=== PATIENT | male | born 1955 | race African-American/Black ===

== ENCOUNTER 2018-08-07 09:29 | Inpatient (IN) ==
[2018-08-07] MEDS ORDERED: SODIUM CHLORIDE 0.9% 1,000 ML IV STA ×2 (09:55→13:07)
[2018-08-07] MEDS ORDERED: THIAMINE 200 MG/2 ML VIAL IV STA (09:57)
[2018-08-07 10:15] LABS: Basophils # 0.1 10*3/uL (0.0-0.2); Basophils % 0.5 % (0.0-0.8); Eosinophils # 0.1 10*3/uL (0.0-0.87); Eosinophils % 0.8 % (0.00-10.9); Hematocrit 38.6 VOL% (42.0-52.0); Hemoglobin 12.7 GM/DL (14.0-18.0); Immature Granulocytes % 0.5 %; Immature Granulocytes Absolute 0.06 #; Lymphocytes # 1.9 10*3/uL (1.4-4.0); Lymphocytes % 16.6 % (21.2-54.2); Mean Corpuscular HGB Conc 32.9 GM/DL (32-36); Mean Corpuscular Hemoglobin 30 PG (27-34); Mean Corpuscular Volume 91.7 FL (87-102); Mean Platelet Volume 10.1 FL (9.6-12.0); Monocytes # 0.8 10*3/uL (0.11-0.8); Monocytes % 6.9 % (1.7-12.7); Neutrophils # 8.7 10*3/uL (1.4-7.4); Neutrophils % 74.7 % (38.7-73.9); Platelet Count 192 T/CUMM (130-400); Red Blood Count 4.21 MC/CUMM (3.8-5.5); Red Cell Distribution Width 13.2 % (9.3-17.3); White Blood Count 11.7 T/CUMM (4-12)
[2018-08-07 10:54] LABS: Alanine Aminotransferase 50 U/L (16-61); Albumin 3.1 G/DL (3.4-5.0); Alkaline Phosphatase 91 U/L (45-117); Aspartate Amino Transferase 86 U/L (0-37); Blood Urea Nitrogen 26 MG/DL (7-18); Calcium 9.2 MG/DL (8.5-10.1); Glucose 74 MG/DL (74-106); Osmolality,Calculated 263.8 MOS/KG (273-304); Potassium 4.3 MMOL/L (3.5-5.1); Sodium 130 MMOL/L (136-145); Total Protein 9.1 G/DL (6.4-8.3); Uric Acid 9.8 MG/DL (3.5-7.2)
[2018-08-07 11:20] LABS: Band Neutrophils 9 % (0-10); Eosinophils 1 % (0-10); Hypochromasia 1+; Lymphocytes 13 % (20-55); Platelet Estimate Normal; Segmented Neutrophils 70 % (50-85); Smudge Cells Few; Total Cells Counted 100
[2018-08-07 11:21] LABS: Anisocytosis Slight; Macrocytosis Slight
[2018-08-07 12:55] LABS: Apearance,Urine CLEAR (Clear); Bilirubin,Urine Negative (Negative); Blood, Urine Small mg/dL (Negative); Glucose,Urine (UA) Negative (Negative); Ketones,Urine 20 mg/dL (Negative); Nitrite,Urine Negative (Negative); Protein,Urine Negative; RBC,Urine <1 /HPF (0-4); Urine Color Yellow (Yellow); Urine Specific Gravity 1.014 (1.001-1.035); Urine Urobilinogen < 2.0 EU/DL (0.2-1.0); WBC,Urine 1 /HPF (0-6)
[2018-08-07 13:04] LABS: Barbiturates Screen,Urine Negative (Negative); Benzodiazepines Screen,Urine Negative (Negative); Cannabinoid Screen,Urine Negative (Negative); Opiate Screen,Urine Negative (Negative); Phencyclidine Screen,Urine Negative (Negative)
[2018-08-07] MEDS ORDERED: ACETAMINOPHEN 325 MG TABLET PO PRN (13:05)
[2018-08-07] MEDS ORDERED: PROMETHAZINE 25 MG TABLET PO PRN (13:05)
[2018-08-07] MEDS ORDERED: LORazepam 2 MG/1 ML VIAL IV PRN (13:08)
[2018-08-07] MEDS ORDERED: cefTRIAXone 1,000 MG in SODIUM CHLORIDE 0.9% 100 ML IV STA (13:13)
[2018-08-07] MEDS ORDERED: GLUCAGON 1 MG VIAL IM PRN ×2 (13:26→18:05)
[2018-08-07] MEDS ORDERED: DEXTROSE 50% 25 GM/50 ML VIAL IV PRN (13:26)
[2018-08-07] MEDS ORDERED: METHOCARBAMOL 750 MG TABLET PO PRN (13:27)
[2018-08-07] MEDS ORDERED: THIAMINE INJ 100 MG, FOLIC ACID INJ 1 MG, MULTIVITAMIN INJ 10 ML in DEXTROSE 5% NACL 0.... IV ONE (13:27)
[2018-08-07] MEDS ORDERED: THIAMINE INJ 100 MG, FOLIC ACID INJ 1 MG, MULTIVITAMIN INJ 10 ML in SODIUM CHLORIDE 0.9... IV ONE (13:27)
[2018-08-07] MEDS ORDERED: ARIPIPRAZOLE 400 MG IM SCH (13:30)
[2018-08-07] MEDS ORDERED: CEFTAROLINE 600 MG in SODIUM CHLORIDE 0.9% 100 ML IV SCH (14:00)
[2018-08-07 14:16] LABS: Folate 12.3 NG/ML (5.4-24.0)
[2018-08-07] MEDS ORDERED: INFLUENZA VIRUS VACCINE 0.5 ML SYRINGE IM ONE (15:43)
[2018-08-07] MEDS: chlordiazePOXIDE 25 MG CAPSULE PO SCH ×2 (16:03→22:31)
[2018-08-07] MEDS: INDOMETHACIN 25 MG CAPSULE PO SCH ×2 (16:03→22:31)
[2018-08-07] MEDS: PANTOPRAZOLE 40 MG TABLET PO SCH (16:04)
[2018-08-07] MEDS: INSULIN LISPRO 100 UNIT/ML SUBCUT SCH ×2 (16:25→22:30)
[2018-08-07] MEDS ORDERED: Asenapine Maleate [Saphris] 10 MG PO SCH (21:00)
[2018-08-07] MEDS: ENOXAPARIN 40 MG/0.4 ML SYRINGE SUBCUT SCH (22:29)
[2018-08-07] MEDS: DIVALPROEX 500 MG TABLET PO SCH (22:31)
[2018-08-07] MEDS: NYSTATIN POWDER 15 GM BOTTLE TOP SCH (22:36)
[2018-08-07] MEDS ORDERED: DEXTROSE 5% NACL 0.45% 1,000 ML IV SCH (23:00)
[2018-08-08] MEDS: chlordiazePOXIDE 25 MG CAPSULE PO SCH ×4 (01:36→22:26)
[2018-08-08 06:16] LABS: Basophils % 0.4 % (0.0-0.8); Eosinophils # 0.1 10*3/uL (0.0-0.87); Eosinophils % 0.9 % (0.00-10.9); Hematocrit 31.6 VOL% (42.0-52.0); Hemoglobin 10.1 GM/DL (14.0-18.0); Immature Granulocytes % 0.7 %; Immature Granulocytes Absolute 0.05 #; Lymphocytes # 1.4 10*3/uL (1.4-4.0); Lymphocytes % 20.5 % (21.2-54.2); Mean Corpuscular Hemoglobin 29 PG (27-34); Mean Corpuscular Volume 91.3 FL (87-102); Mean Platelet Volume 10.7 FL (9.6-12.0); Monocytes # 0.5 10*3/uL (0.11-0.8); Monocytes % 7.2 % (1.7-12.7); Neutrophils # 4.9 10*3/uL (1.4-7.4); Neutrophils % 70.3 % (38.7-73.9); Platelet Count 155 T/CUMM (130-400); Red Blood Count 3.46 MC/CUMM (3.8-5.5); White Blood Count 6.9 T/CUMM (4-12)
[2018-08-08 06:43] LABS: Alanine Aminotransferase 31 U/L (16-61); Albumin 2.2 G/DL (3.4-5.0); Alkaline Phosphatase 74 U/L (45-117); Aspartate Amino Transferase 47 U/L (0-37); Bilirubin,Total < 0.39 MG/DL (0.2-1.0); Blood Urea Nitrogen 17 MG/DL (7-18); Cholesterol 161 MG/DL (50-200); Glucose 122 MG/DL (74-106); HDL Cholesterol 30 MG/DL (40-60); Potassium 3.1 MMOL/L (3.5-5.1); Risk Ratio 5.37; Sodium 136 MMOL/L (136-145); Triglycerides 146 MG/DL (2-150); VLDL CHOLESTEROL 29.2 MG/DL
[2018-08-08] MEDS: INSULIN LISPRO 100 UNIT/ML SUBCUT SCH ×3 (07:26→16:58)
[2018-08-08 07:42] LABS: Eosinophils 2 % (0-10); Hypochromasia 1+; Lymphocytes 19 % (20-55); Platelet Estimate Adequate; Segmented Neutrophils 70 % (50-85); Total Cells Counted 100
[2018-08-08] MEDS ORDERED: POTASSIUM CHLORIDE 20 MEQ TABLET PO ONE ×2 (08:14→12:00)
[2018-08-08] MEDS ORDERED: POTASSIUM CHLORIDE INJ 20 MEQ in DEXTROSE 5% NACL 0.45% 1,000 ML IV SCH (08:14)
[2018-08-08] MEDS: DIVALPROEX 500 MG TABLET PO SCH ×2 (09:58→22:26)
[2018-08-08] MEDS: INDOMETHACIN 25 MG CAPSULE PO SCH ×2 (09:58→22:26)
[2018-08-08] MEDS: MULTIVITAMIN (CENTRUM) TABLET PO SCH (09:58)
[2018-08-08] MEDS: FOLIC ACID 1 MG TABLET PO SCH (09:58)
[2018-08-08] MEDS: FLUoxetine 20 MG CAPSULE PO SCH (09:58)
[2018-08-08] MEDS: NYSTATIN POWDER 15 GM BOTTLE TOP SCH ×3 (09:59→22:30)
[2018-08-08] MEDS: PANTOPRAZOLE 40 MG TABLET PO SCH (09:59)
[2018-08-08] MEDS ORDERED: LACTULOSE 20 GM/30 ML UDCUP PO SCH (10:00)
[2018-08-08] MEDS: DEXT 5% NACL 0.45% KCL 20 MEQ 20 MEQ/1,000 ML BAG IV SCH (10:08)
[2018-08-08] MEDS ORDERED: BETAMETH SODIUM PHOS/ACETATE 30 MG/5 ML VIAL INTRAARTIC ONE (12:51)
[2018-08-08] MEDS ORDERED: BETAMETH SODIUM PHOS/ACETATE 30 MG/5 ML VIAL ONE ×2 (12:58→12:59)
[2018-08-08 15:28] LABS: Lymphocytes,Synovial Fluid 19 %; Neutrophils,Synovial Fluid 78 %
[2018-08-08] MEDS: FEBUXOSTAT 80 MG TABLET PO SCH (15:40)
[2018-08-08] MEDS: COLCHICINE 0.6 MG CAPSULE PO SCH ×2 (15:41→22:26)
[2018-08-08] MEDS: predniSONE 20 MG TABLET PO SCH (15:42)
[2018-08-08] MEDS: ENOXAPARIN 40 MG/0.4 ML SYRINGE SUBCUT SCH (22:26)
[2018-08-09] MEDS: INSULIN LISPRO 100 UNIT/ML SUBCUT SCH ×5 (01:56→21:59)
[2018-08-09 05:16] LABS: Basophils % 0.1 % (0.0-0.8); Hematocrit 33.1 VOL% (42.0-52.0); Hemoglobin 10.9 GM/DL (14.0-18.0); Immature Granulocytes % 0.5 %; Immature Granulocytes Absolute 0.05 #; Lymphocytes # 0.7 10*3/uL (1.4-4.0); Lymphocytes % 6.6 % (21.2-54.2); Mean Corpuscular HGB Conc 32.9 GM/DL (32-36); Mean Corpuscular Hemoglobin 30 PG (27-34); Mean Corpuscular Volume 90.4 FL (87-102); Mean Platelet Volume 10.5 FL (9.6-12.0); Monocytes # 0.2 10*3/uL (0.11-0.8); Monocytes % 2.4 % (1.7-12.7); Neutrophils % 90.4 % (38.7-73.9); Platelet Count 156 T/CUMM (130-400); Red Blood Count 3.66 MC/CUMM (3.8-5.5); Red Cell Distribution Width 12.9 % (9.3-17.3)
[2018-08-09 05:38] LABS: Calcium 8.9 MG/DL (8.5-10.1); Osmolality,Calculated 273.2 MOS/KG (273-304); Potassium 4.8 MMOL/L (3.5-5.1)
[2018-08-09] MEDS: chlordiazePOXIDE 25 MG CAPSULE PO SCH ×2 (06:14→12:38)
[2018-08-09] MEDS: DEXT 5% NACL 0.45% KCL 20 MEQ 20 MEQ/1,000 ML BAG IV SCH ×2 (06:43→06:44)
[2018-08-09] MEDS: LACTULOSE 20 GM/30 ML UDCUP PO SCH (08:28)
[2018-08-09] MEDS: FOLIC ACID 1 MG TABLET PO SCH (08:29)
[2018-08-09] MEDS: DIVALPROEX 500 MG TABLET PO SCH ×2 (08:29→21:51)
[2018-08-09] MEDS: FLUoxetine 20 MG CAPSULE PO SCH (08:29)
[2018-08-09] MEDS: PANTOPRAZOLE 40 MG TABLET PO SCH (08:30)
[2018-08-09] MEDS: MULTIVITAMIN (CENTRUM) TABLET PO SCH (08:30)
[2018-08-09] MEDS ORDERED: SODIUM CHLORIDE 0.9% 1,000 ML IV SCH (08:30)
[2018-08-09] MEDS: predniSONE 20 MG TABLET PO SCH (08:30)
[2018-08-09] MEDS: FEBUXOSTAT 80 MG TABLET PO SCH (08:30)
[2018-08-09] MEDS: COLCHICINE 0.6 MG CAPSULE PO SCH ×2 (08:30→21:51)
[2018-08-09] MEDS: INDOMETHACIN 25 MG CAPSULE PO SCH ×2 (08:33→21:51)
[2018-08-09] MEDS: NYSTATIN POWDER 15 GM BOTTLE TOP SCH ×3 (08:34→21:51)
[2018-08-09] MEDS ORDERED: chlordiazePOXIDE 25 MG CAPSULE PO PRN (15:09)
[2018-08-09] MEDS: DESITIN 4OZ/NYSTATIN 15 GRAM MIXTURE PASTE TOP SCH ×2 (16:59→21:52)
[2018-08-09] MEDS: ENOXAPARIN 40 MG/0.4 ML SYRINGE SUBCUT SCH (21:51)
[2018-08-10 06:14] LABS: Basophils % 0.1 % (0.0-0.8); Hemoglobin 10.2 GM/DL (14.0-18.0); Immature Granulocytes Absolute 0.14 #; Lymphocytes # 1.2 10*3/uL (1.4-4.0); Lymphocytes % 8.7 % (21.2-54.2); Mean Corpuscular HGB Conc 31.9 GM/DL (32-36); Mean Corpuscular Hemoglobin 29 PG (27-34); Mean Corpuscular Volume 90.9 FL (87-102); Mean Platelet Volume 11.2 FL (9.6-12.0); Monocytes # 0.8 10*3/uL (0.11-0.8); Monocytes % 5.7 % (1.7-12.7); Neutrophils # 11.8 10*3/uL (1.4-7.4); Neutrophils % 84.5 % (38.7-73.9); Platelet Count 198 T/CUMM (130-400); Red Blood Count 3.52 MC/CUMM (3.8-5.5); Red Cell Distribution Width 13.2 % (9.3-17.3)
[2018-08-10 06:37] LABS: Bilirubin,Total 1.1 MG/DL (0.2-1.0); Osmolality,Calculated 279.8 MOS/KG (273-304); Potassium 4.7 MMOL/L (3.5-5.1); Total Protein 7.3 G/DL (6.4-8.3)
[2018-08-10] MEDS: LACTULOSE 20 GM/30 ML UDCUP PO SCH (09:16)
[2018-08-10] MEDS: FEBUXOSTAT 80 MG TABLET PO SCH (09:16)
[2018-08-10] MEDS: FOLIC ACID 1 MG TABLET PO SCH (09:16)
[2018-08-10] MEDS: DIVALPROEX 500 MG TABLET PO SCH ×2 (09:16→21:30)
[2018-08-10] MEDS: FLUoxetine 20 MG CAPSULE PO SCH (09:16)
[2018-08-10] MEDS: INDOMETHACIN 25 MG CAPSULE PO SCH ×2 (09:16→21:30)
[2018-08-10] MEDS: predniSONE 20 MG TABLET PO SCH (09:16)
[2018-08-10] MEDS: COLCHICINE 0.6 MG CAPSULE PO SCH ×2 (09:16→21:30)
[2018-08-10] MEDS: PANTOPRAZOLE 40 MG TABLET PO SCH (09:16)
[2018-08-10] MEDS: NYSTATIN POWDER 15 GM BOTTLE TOP SCH ×3 (09:17→22:40)
[2018-08-10] MEDS: INSULIN LISPRO 100 UNIT/ML SUBCUT SCH ×4 (09:17→22:39)
[2018-08-10] MEDS: MULTIVITAMIN (CENTRUM) TABLET PO SCH (09:17)
[2018-08-10] MEDS: DESITIN 4OZ/NYSTATIN 15 GRAM MIXTURE PASTE TOP SCH ×2 (09:18→22:40)
[2018-08-10] MEDS ORDERED: TUBERCULIN SKIN TEST 0.1 ML SYRINGE INTRADERM ONE (18:27)
[2018-08-10] MEDS: ENOXAPARIN 40 MG/0.4 ML SYRINGE SUBCUT SCH (21:31)
[2018-08-11 06:12] LABS: Basophils % 0.1 % (0.0-0.8); Hematocrit 32.9 VOL% (42.0-52.0); Hemoglobin 10.7 GM/DL (14.0-18.0); Immature Granulocytes % 1.2 %; Immature Granulocytes Absolute 0.13 #; Lymphocytes # 1.1 10*3/uL (1.4-4.0); Lymphocytes % 10.6 % (21.2-54.2); Mean Corpuscular HGB Conc 32.5 GM/DL (32-36); Mean Corpuscular Hemoglobin 30 PG (27-34); Mean Corpuscular Volume 92.7 FL (87-102); Mean Platelet Volume 10.7 FL (9.6-12.0); Monocytes # 0.7 10*3/uL (0.11-0.8); Monocytes % 6.1 % (1.7-12.7); Neutrophils # 8.7 10*3/uL (1.4-7.4); Platelet Count 213 T/CUMM (130-400); Red Blood Count 3.55 MC/CUMM (3.8-5.5); Red Cell Distribution Width 13.2 % (9.3-17.3); White Blood Count 10.6 T/CUMM (4-12)
[2018-08-11] MEDS: INSULIN LISPRO 100 UNIT/ML SUBCUT SCH ×4 (08:16→22:07)
[2018-08-11] MEDS: LACTULOSE 20 GM/30 ML UDCUP PO SCH (08:28)
[2018-08-11] MEDS: COLCHICINE 0.6 MG CAPSULE PO SCH ×2 (08:28→22:07)
[2018-08-11] MEDS: DIVALPROEX 500 MG TABLET PO SCH ×2 (08:29→22:07)
[2018-08-11] MEDS: FOLIC ACID 1 MG TABLET PO SCH (08:29)
[2018-08-11] MEDS: MULTIVITAMIN (CENTRUM) TABLET PO SCH (08:29)
[2018-08-11] MEDS: FLUoxetine 20 MG CAPSULE PO SCH (08:29)
[2018-08-11] MEDS: predniSONE 20 MG TABLET PO SCH (08:29)
[2018-08-11] MEDS: INDOMETHACIN 25 MG CAPSULE PO SCH ×2 (08:29→22:07)
[2018-08-11] MEDS: DESITIN 4OZ/NYSTATIN 15 GRAM MIXTURE PASTE TOP SCH ×2 (08:30→22:07)
[2018-08-11] MEDS: PANTOPRAZOLE 40 MG TABLET PO SCH (08:30)
[2018-08-11] MEDS: FEBUXOSTAT 80 MG TABLET PO SCH (08:30)
[2018-08-11] MEDS: NYSTATIN POWDER 15 GM BOTTLE TOP SCH ×3 (08:30→22:08)
[2018-08-11] MEDS: ENOXAPARIN 40 MG/0.4 ML SYRINGE SUBCUT SCH (22:07)
[2018-08-12] MEDS: INSULIN LISPRO 100 UNIT/ML SUBCUT SCH ×4 (09:46→23:55)
[2018-08-12] MEDS: INDOMETHACIN 25 MG CAPSULE PO SCH ×2 (10:15→21:40)
[2018-08-12] MEDS: COLCHICINE 0.6 MG CAPSULE PO SCH ×2 (10:15→21:41)
[2018-08-12] MEDS: FLUoxetine 20 MG CAPSULE PO SCH (10:16)
[2018-08-12] MEDS: DIVALPROEX 500 MG TABLET PO SCH ×2 (10:16→21:41)
[2018-08-12] MEDS: FOLIC ACID 1 MG TABLET PO SCH (10:16)
[2018-08-12] MEDS: FEBUXOSTAT 80 MG TABLET PO SCH (10:17)
[2018-08-12] MEDS: MULTIVITAMIN (CENTRUM) TABLET PO SCH (10:17)
[2018-08-12] MEDS: predniSONE 20 MG TABLET PO SCH (10:17)
[2018-08-12] MEDS: LACTULOSE 20 GM/30 ML UDCUP PO SCH (10:18)
[2018-08-12] MEDS: NYSTATIN POWDER 15 GM BOTTLE TOP SCH ×3 (10:18→21:41)
[2018-08-12] MEDS: PANTOPRAZOLE 40 MG TABLET PO SCH (10:18)
[2018-08-12] MEDS: DESITIN 4OZ/NYSTATIN 15 GRAM MIXTURE PASTE TOP SCH ×2 (10:18→21:41)
[2018-08-12] MEDS: ENOXAPARIN 40 MG/0.4 ML SYRINGE SUBCUT SCH (21:46)
[2018-08-13] MEDS: INSULIN LISPRO 100 UNIT/ML SUBCUT SCH ×3 (06:53→16:46)
[2018-08-13] MEDS: FLUoxetine 20 MG CAPSULE PO SCH (08:09)
[2018-08-13] MEDS: FOLIC ACID 1 MG TABLET PO SCH (08:09)
[2018-08-13] MEDS: FEBUXOSTAT 80 MG TABLET PO SCH (08:09)
[2018-08-13] MEDS: NYSTATIN POWDER 15 GM BOTTLE TOP SCH ×2 (08:10→15:10)
[2018-08-13] MEDS: predniSONE 20 MG TABLET PO SCH (08:10)
[2018-08-13] MEDS: PANTOPRAZOLE 40 MG TABLET PO SCH (08:10)
[2018-08-13] MEDS: INDOMETHACIN 25 MG CAPSULE PO SCH (08:10)
[2018-08-13] MEDS: MULTIVITAMIN (CENTRUM) TABLET PO SCH (08:10)
[2018-08-13] MEDS: COLCHICINE 0.6 MG CAPSULE PO SCH (08:10)
[2018-08-13] MEDS: DIVALPROEX 500 MG TABLET PO SCH (08:10)
[2018-08-13] MEDS: DESITIN 4OZ/NYSTATIN 15 GRAM MIXTURE PASTE TOP SCH (08:11)
[2018-08-13] MEDS: LACTULOSE 20 GM/30 ML UDCUP PO SCH (08:11)
[2018-08-13] MEDS ORDERED: INFLUENZA VIRUS VACCINE 0.5 ML SYRINGE IM ONE (11:03)
[2018-08-13 16:02] VITALS: BP 156/89
== END 2018-08-13 16:51 | disposition swing bed (61) | DRG 897 ==
LOC: EDUNIT# → EDBD → N.ED 09:29 → SUATTDRO 13:05 → N.EDINP 13:09 → N.5E 13:23
PROVIDERS: ADMIT Internal Medicine; ATTEND Family Medicine